=== PATIENT | female | born 1990 | race Caucasian/White ===

== ENCOUNTER 2021-02-25 20:14 | Emergency (ER) | payer MEDICAID ==
[~2021-02-25] VITALS: Ht 175.3 cm; Wt 75.0 kg
[2021-02-25] MEDS ORDERED: HYDROCODONE/ACETAMINOPHEN 5/325MG TABLET PO ONE (21:15)
[2021-02-25 22:47] VITALS: BP 115/68
== END 2021-02-25 23:41 | disposition home or self-care (01) ==
LOC: ER 20:14
DX: O99.891 Other specified diseases and conditions complicating pregnancy (principal); M25.532 Pain in left wrist; M25.561 Pain in right knee; M54.5 Low back pain; G89.11 Acute pain due to trauma; O20.8 Other hemorrhage in early pregnancy; Z3A.01 Less than 8 weeks gestation of pregnancy; V43.52XA Car driver injured in collision with other type car in traffic accident, initial encounter; Y93.89 Activity, other specified; Y92.488 Other paved roadways as the place of occurrence of the external cause; Z87.81 Personal history of (healed) traumatic fracture
CPT/HCPCS: 73110; 73562; 76801; 81025; 99284